=== PATIENT | male | born 1945 | race Caucasian/White ===

== ENCOUNTER → 2017-04-28 | Outpatient (CLI) | payer MEDICARE, OTHER ==
[~2017-04-28] MED LIST: ADULT LOW DOSE81 MG PO; FIBERCON; MEDROLDOSEPACK PO; MULTI VIT PO; NEURONTIN 300M300 M2 PO; SINGULAIR 10 MG10 M1 PO; VORICONAZOLE50 MG PO
== END ==
LOC: M.MRI 08:02
DX: M54.12 Radiculopathy, cervical region (principal); M47.892 Other spondylosis, cervical region; M48.02 Spinal stenosis, cervical region

== ENCOUNTER → 2017-05-05 | Outpatient (CLI) | payer MEDICARE, OTHER ==
--- NOTE | 2017-05-18 08:21 | PAINCON ---
[address] [address] PAIN MANAGEMENT CONSULTATION Name: RAJI GRAYSON Room: [facility]#: [id number] Admission: 05/05/17 Attend Phys: Ale Estrada MD Discharge: Date of : 45 Report #: [id number] THIS REPORT FOR: //name// CC: Rajinder Estrada DATE OF SERVICE: 05/05/2017 CHIEF COMPLAINT: Pain in the left arm and neck. FOLLOWUP HISTORY: The patient is a 71-year-old gentleman who has been referred to the pain clinic for evaluation. He has noted over the last 3 months, some progressive pain involving his left arm, neck, and shoulder. He is experiencing pain, which he describes as 5/10. He has pain that is limiting the use of his left arm. He is a [place]. 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 He is having difficulty placing his coat on. He recently had EMG, which showed a pinched nerve. He describes it as intermittent and sharp. He had a C5-C6 fusion in 1982. ALLERGIES: MOLDS AND DUST MITES. CURRENT MEDICATIONS: Singulair 10 mg at bedtime. PAST MEDICAL HISTORY: C6/C5 fusion in 1982. PAST SURGICAL HISTORY: C5-C6 surgery, fusion in 1982, tonsillectomy in 1957. Bilateral cataract surgeries. 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 He is working at this juncture. Works as a [place] as well. Denies use of tobacco, denies use of alcoholic beverages. REVIEW OF SYSTEMS: Generally, good health, wears glasses, hearing loss, chronic frequent cough, asthma/wheezing, joint pain. PAIN CLINIC ASSESSMENT: 1. The patient is not being treated for osteoarthritis, but has some arthritic changes in his neck. 2. Height 5 feet 10 inches, weight 232 pounds, BMI is 33. 3. Vital signs: Blood pressure 135/82, heart rate 64, respiratory rate 16, room air saturation 95%, temperature 98.6. 4. Pain intensity 06/23. 5. Fall risk. The patient has not fallen in the last 3 months. 6. The patient is not on blood thinner 7. History of hypertension. The patient is not being treated for hypertension. 8. Opioid therapy greater than 6 weeks. The [place] [address] PAIN MANAGEMENT CONSULTATION Name: RAJI GRAYSON Richie Room: [facility]#: [id number] Admission: 05/05/17 Attend Phys: Ale Estrada MD Discharge: Date of : 45 Report #: [id number] therapy regimen. 9. Risk assessment tool. 10. Functional assessment tool, . 11. Recreational drug use. The patient denies recreational drug use. 12. Tobacco. The patient denies use of tobacco. 13. Alcohol use, described as rare. LABORATORY DATA: MRI of the cervical spine dated 04/28/2017, reveals: 1. C3-C4, there is a small broad-based posterior disk bulge with mild effacement of the ventral thecal sac. There is no evidence of central canal stenosis. There is moderate right and mild left neural foraminal stenosis due to uncovertebral and facet arthrosis. 2. C4-C5, there is underlying broad-based posterior disk osteophyte complex with effacement and indents the ventral thecal sac and cervical spinal cord. There is a narrowing of the thecal sac to 6.5/7 mm consistent with xxpzludq-gz-vcengn thecal sac stenosis with additional thickening and ligamentum flavum grade. There is bzyfqdsv-dq-tvatob bilateral neural foraminal stenosis due to uncovertebral facet joint arthrosis. 3. C5-C6 intervertebral body fusion noted without significant posterior osteophyte bridging. No definite central spinal canal stenosis or neural foraminal stenosis. 4. C6-C7, there is a broad-based disk osteophyte complex, which effaces the ventral thecal sac and cervical spinal cord. There is narrowing of the thecal sac to 8.5 mm consistent with ffyw-gf-utjoxave thecal sac stenosis. There is moderate right and msbifdua-tg-fpwweu left neural foraminal stenosis due to uncovertebral and facet arthrosis. At C7/T1, there is no significant disk bulge or protrusion. PHYSICAL EXAMINATION: GENERAL: The patient is a well-developed, well-nourished white male. He appears his stated age. Orientation: The patient is alert and oriented x 3. Affect: The patient's affect is appropriate. HEENT: Normocephalic, atraumatic. Extraocular eye muscles intact. Sclerae are clear. Hearing, within normal limits. NECK: Supple without masses, notes some increased pain and discomfort in the left neck and arm area as well as in the area of his shoulder. CHEST: Clear to auscultation. ABDOMEN: Nontender. MUSCULOSKELETAL: Without significant scoliosis, kyphosis, or lordosis. EXTREMITIES: Muscle strength is judged to be 5/5 for the major muscle groups in the upper extremities bilaterally. Trace biceps tendon reflexes bilaterally. 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 The patient notes some increased pain in the left neck with left lateral bending, right lateral bending, left and right lateral rotation, neck extension and flexion cause some increased discomfort in the area of his left arm and notes some pain radiating down into his arm with [place] [address] PAIN MANAGEMENT CONSULTATION Name: KENANRAJI Richie Room: [facility]#: [id number] Admission: 05/05/17 Attend Phys: Ale Estrada MD Discharge: Date of : 45 Report #: [id number] SKIN: Appears normal without any rashes and unremarkable. IMPRESSION: History of cervical radiculopathy with recurrence of pain and discomfort involving the left arm, shoulder, and neck area. RECOMMENDATIONS: We discussed treatment options with the patient. He did have a cervical fusion at C5-C6 in 1982. At this juncture he is noticing some pain and discomfort, which radiates down into his left arm involving the arm, forearm, and numbness down into his fingers. It appears that he is having some irritation of this area. His MRI shows some narrowing in the C4-C5 area down to 6.5/7 mm as well as narrowing at C6/C7 down to 8.5 mm with bbtttubh-lj-biofcr left-sided neural foraminal stenosis due to uncovertebral and facet arthrosis. At this juncture we will try a conservative approach. The patient will be given a Medrol Dosepak to take in the interim. He will also try gabapentin 300 mg 1 p.o. t.i.d. and titrate it as directed. He will return in the near future to the pain clinic for further evaluation. He states that he had an EMG that showed some problems in the neck and arm. Those values are not available at the time of our interview. We would like to thank you for letting us participate in his care. We hope he continues to improve. <ELECTRONICALLY SIGNED> By: Ale Estrada MD 05/18/17 0821 1046 2013N. Jose Estrada MD /[facility]
== END ==
LOC: M.PC 03:52
DX: M48.02 Spinal stenosis, cervical region (principal)

== ENCOUNTER → 2017-05-19 | Outpatient (CLI) | payer MEDICARE, OTHER ==
--- NOTE | 2017-06-07 08:16 | PAINCON ---
[address] [address] PAIN MANAGEMENT CONSULTATION Name: RAJI GRAYSON [id number] Admission: 05/19/17 Attend Phys: Ale Estrada MD Discharge: Date of : 45 Report #: [id number] THIS REPORT FOR: //name// CC: Rajinder Estrada DATE OF SERVICE: 05/19/2017 FOLLOWUP COMPLAINT: The patient is a 71-year-old gentleman who has been seen in the pain clinic because of pain involving his left arm, neck, and down into his left shoulder. He has had some pain over the last 3 months. Pain had progressed and worsened to the point where he was a 5/10 at the last visit. He had some problems with limitations using his left arm. As you may recall, he is a [place]. 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 He had cervical fusion at C5-C6 in 1982. He was given gabapentin at the last visit. Notes that 300 mg b.i.d. has had some effect on his pain. Still has some pain in his shoulder when he raises on the left side. He has noticed that the use of the gabapentin has been very helpful over the last week; though, he has noted that the pain is worsened somewhat. At this juncture, he is not having significant pain in his neck. Rates his pain score as a 1/10 while sitting. He states that his pain was best at a zero at this juncture, it was a 6-7 during some time course last week. Overall, things are going reasonably well. He has had no complications from use of the gabapentin. No change in mentation. ALLERGIES: MOLD AND DUST MITES. CURRENT MEDICATIONS: 1. Singulair 10 mg at bedtime. 2. Gabapentin 300 mg b.i.d. PAIN CLINIC ASSESSMENT: 1. The patient is not being treated for osteoarthritis, but he does have some arthritic changes in his neck. 2. Pain intensity 1 while sitting. 3. Fall risk: The patient has not fallen in the last 3 months. 4. The patient is not on a blood thinner. 5. History of hypertension: The patient is not being treated for hypertension. 6. Opioid therapy greater than 6 weeks. The patient is not on an opioid regimen. 7. Risk assessment tool. 8. Functional assessment tool , which shows mild problems with pain with activities of daily living. 9. Recreational drug use: The patient denies recreational drug use. 10. Tobacco: The patient [place] [address] PAIN MANAGEMENT CONSULTATION Name: RAJI GRAYSON [id number] Admission: 05/19/17 Attend Phys: Ale Estrada MD Discharge: Date of : 45 Report #: [id number] 11. Alcohol use. The patient denies use of alcohol is rare. LABORATORY DATA: MRI of the cervical spine dated 04/28/2017 reveals: C3-C4: There is a small broad-based posterior disk bulge with mild effacement of the ventral thecal sac. There is no evidence of central canal stenosis. There is moderate right and mild left neural foraminal stenosis due to uncovertebral and facet arthrosis. C4-C5: There is underlying broad-based posterior disk osteophyte complex with effacement and dense ventral thecal sac and cervical spinal cord. There is a narrowing of the thecal sac to 6.5/7 mm consistent with bxgdcmcn-ha-naynfr thecal sac stenosis with additional thickening and ligamentum flavum problems. There is txlhwylg-ux-zhwskz bilateral neural foraminal stenosis due to uncovertebral facet joint arthrosis. C5-C6: Intervertebral body fusion noted without significant posterior osteophyte bridging. No definite central spinal canal stenosis or neural foraminal stenosis. C6-C7: There is a broad-based disk osteophyte complex, which effaces the ventral thecal sac and cervical spinal cord. There is narrowing of the thecal sac to 8.5 mm consistent with uici-zg-amfqdoiy thecal sac stenosis. There is moderate right and wjvwoymi-zf-ptvkyn left neural foraminal stenosis due to uncovertebral and facet arthrosis. C7-T1: There is no significant disk bulge or protrusion. PHYSICAL EXAMINATION: GENERAL: The patient is a well-developed, well-nourished white male. He appears his stated age. Orientation: The patient is alert and oriented x 3. Affect: The patient's affect is appropriate. Height 5 feet 10 inches, weight 233 pounds, and BMI is 33. VITAL SIGNS: Blood pressure 138/70, heart rate 66, respiratory rate 16, room air saturation 98%, and temperature 98.2. HEENT: Normocephalic and atraumatic. Extraocular eye muscles intact. Sclerae nonicteric. Hearing is within normal limits.. NECK: Without masses, some increased pain and discomfort in the left neck and arm area as well as in the area of the left shoulder. CHEST: Clear to auscultation. ABDOMEN: Nontender. MUSCULOSKELETAL: Without significant scoliosis, kyphosis, or lordosis. EXTREMITIES: Muscle straight is judged to be 5/5 for the major muscle groups in the upper extremity. Trace bilateral tendon reflexes. 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 The patient notes that there is some increased pain in his left neck with some left lateral bending, right lateral bending, and left and right lateral rotation. Neck extension and flexions cause some increased discomfort in this area as well. IMPRESSION: History of cervical radiculopathy with recurrent pain, spinal stenosis, and cervical [place] [address] PAIN MANAGEMENT CONSULTATION Name: RAJI GRAYSON Room: [facility]#: [id number] Admission: 05/19/17 Attend Phys: Ale Estrada MD Discharge: Date of : 45 Report #: [id number] RECOMMENDATIONS: We discussed treatment options with the patient. He has noted some improvement with use of gabapentin 300 mg 1 p.o. b.i.d. At this juncture, we will continue with his current medical regimen. He will follow up in the future. If need, we will consider a cervical epidural steroid injection. We would like to thank you for letting us to participate in his care. We hope he continues to improve. <ELECTRONICALLY SIGNED> By: Ale Estrada MD 06/07/17 0816 2220 [id number]. Jose Estrada MD /PMT
== END ==
LOC: M.PC 01:55
DX: M54.12 Radiculopathy, cervical region (principal); M48.02 Spinal stenosis, cervical region

== ENCOUNTER → 2017-06-14 | Outpatient (CLI) | payer MEDICARE, OTHER | LOC: M.CT 09:05 | DX: M79.9 Soft tissue disorder, unspecified (principal); R05 Cough; R91.8 Other nonspecific abnormal finding of lung field ==

== ENCOUNTER → 2017-12-23 | Outpatient (CLI) | payer MEDICARE, OTHER | LOC: M.CT 09:12 | DX: R91.8 Other nonspecific abnormal finding of lung field (principal) ==

== ENCOUNTER → 2018-01-02 | Outpatient (CLI) | payer MEDICARE, OTHER | LOC: M.CT 15:58 | DX: K57.30 Diverticulosis of large intestine without perforation or abscess without bleeding (principal); N40.2 Nodular prostate without lower urinary tract symptoms; K75.3 Granulomatous hepatitis, not elsewhere classified; M35.3 Polymyalgia rheumatica ==

== ENCOUNTER → 2018-12-13 | Outpatient (CLI) | payer MEDICARE, OTHER ==
[2018-12-13 12:16] LABS: CREATININE 1.1 mg/dL (0.6-1.3)
== END ==
LOC: M.LAB 11:30 → M.CT 13:00
PROVIDERS: Internal Medicine
DX: H91.91 Unspecified hearing loss, right ear (principal); M25.50 Pain in unspecified joint

== ENCOUNTER → 2019-03-05 | Outpatient (CLI) | payer MEDICARE, OTHER | LOC: M.RAD 16:19 | DX: J43.9 Emphysema, unspecified (principal); M47.814 Spondylosis without myelopathy or radiculopathy, thoracic region ==

== ENCOUNTER → 2021-01-05 | Outpatient (CLI) | payer MEDICARE, OTHER | LOC: M.CT 11:42 | PROVIDERS: ATTEND Internal Medicine | DX: G31.89 Other specified degenerative diseases of nervous system (principal); R90.82 White matter disease, unspecified; H55.09 Other forms of nystagmus; R29.818 Other symptoms and signs involving the nervous system; R26.9 Unspecified abnormalities of gait and mobility ==